=== PATIENT | female | born 1990 | race Caucasian/White ===

== ENCOUNTER → 2016-09-02 | Outpatient (CLI) | payer SELFPAY | END | disposition short-term general hospital (02) | LOC: CLENT 09:18 | DX: H66.91 Otitis media, unspecified, right ear (principal) ==

== ENCOUNTER 2016-09-21 00:18 | Emergency (ER) | payer SELFPAY ==
[~2016-09-21] VITALS: Ht 175.3 cm; Wt 99.8 kg
== END 2016-09-21 00:59 | disposition short-term general hospital (02) ==
LOC: ER 00:18
DX: G43.909 Migraine, unspecified, not intractable, without status migrainosus (principal); Z88.0 Allergy status to penicillin; Z88.1 Allergy status to other antibiotic agents
CPT/HCPCS: J1885; J2765